=== PATIENT | male | born 1980 | race Caucasian/White ===

== ENCOUNTER 2022-01-15 10:18 | Emergency (ER) | payer OTHER ==
[~2022-01-15] VITALS: Ht 182.9 cm; Wt 93.9 kg
[2022-01-15] MEDS ORDERED: ALPRAZOLAM0.5 MG PO (11:56)
--- NOTE | 2022-01-16 19:24 | EKG ---
[facility] [address] [facility] [place] [address] Signed Sinus bradycardia Otherwise normal ECG No previous ECGs available Confirmed by LEXI BLAIR MD ([id number] on 01/16/2022 7:24:19 PM Electronically Signed By: LEXI BLAIR MD 01/16/221923 PATIENT NAME: DANNIELLE ARENAS Electrocardiogram DATE OF : 78 PHYSICIAN: LEXI BLAIR MD REPORT #: [id number] REPORT IS CONFIDENTIAL AND NOT TO BE RELEASED WITHOUT AUTHORIZATION
== END 2022-01-17 17:05 ==
LOC: ED 10:18
DX: F19.10 Other psychoactive substance abuse, uncomplicated (principal); F22 Delusional disorders; Z79.899 Other long term (current) drug therapy; Z20.822 Contact with and (suspected) exposure to COVID-19
CPT/HCPCS: 36415; 80053; 81003; 84443; 84484; 85025; 93005; 93010; 99285-25; G0480; U0003